=== PATIENT | female | born 1985 | race Caucasian/White ===

== ENCOUNTER 2021-06-28 08:44 | Outpatient (CLI) | payer OTHER | END 2021-06-28 11:03 | disposition home or self-care (01) | LOC: NST 08:44 | PROVIDERS: ATTEND Obstetrics & Gynecology | DX: Z34.82 Encounter for supervision of other normal pregnancy, second trimester (principal) ==

== ENCOUNTER 2021-09-17 17:37 | Outpatient (CLI) | payer OTHER ==
[2021-09-17] MEDS ORDERED: LABETALOL HCL100 MG PO (18:16)
[2021-09-17] MEDS ORDERED: ECOTRIN81 MG PO (18:17)
[2021-09-17] MEDS ORDERED: PRENATAL TABLE1 EAC3 PO (18:17)
== END 2021-09-20 09:42 | disposition home or self-care (01) ==
LOC: OBS/DEL 17:37
PROVIDERS: ATTEND Obstetrics & Gynecology
DX: O16.3 Unspecified maternal hypertension, third trimester (principal); O60.03 Preterm labor without delivery, third trimester; Z3A.33 33 weeks gestation of pregnancy

== ENCOUNTER 2021-10-07 16:33 | Inpatient (IN) | payer OTHER ==
[~2021-10-07] VITALS: Ht 157.5 cm; Wt 3.2 kg
[~2021-10-07 16:33] MED LIST: ECOTRIN81 MG PO; LABETALOL HCL100 MG PO; PRENATAL TABLE1 EAC3 PO
[2021-10-07] MEDS ORDERED: LABETALOL HCL100 MG PO (18:14)
[2021-10-07] MEDS ORDERED: PRENATAL CAPLE1 EAC1 PO (18:14)
[2021-10-08] MEDS ORDERED: MOMETASONE FURO17 GM (08:13)
== END 2021-10-11 12:58 | disposition home or self-care (01) | DRG 786 ==
LOC: LDR 16:33 → O/R 10-08 07:49 → OB/GYN 10-08 13:17
PROVIDERS: ADMIT Obstetrics & Gynecology; ATTEND Obstetrics & Gynecology
PROC: 4A1HXCZ Monitoring of Products of Conception, Cardiac Rate, External Approach (ICD-10-PCS; 2021-10-07)
PROC: 10D00Z1 Extraction of Products of Conception, Low, Open Approach (ICD-10-PCS; principal; 2021-10-08 09:00)
DX: O34.211 Maternal care for low transverse scar from previous cesarean delivery (principal); O11.3 Pre-existing hypertension with pre-eclampsia, third trimester; Z37.0 Single live birth; Z3A.37 37 weeks gestation of pregnancy; Z20.822 Contact with and (suspected) exposure to COVID-19

== ENCOUNTER 2021-10-12 16:48 | Outpatient (CLI) | payer OTHER ==
[~2021-10-12 16:48] MED LIST changes: +MOMETASONE FURO17 GM; +PRENATAL CAPLE1 EAC1 PO
[2021-10-13] MEDS ORDERED: LABETALOL HCL200 MG PO (07:39)
== END 2021-10-13 09:55 | disposition home or self-care (01) ==
LOC: OBS/DEL 16:48
PROVIDERS: ATTEND Obstetrics & Gynecology
DX: O15.2 Eclampsia complicating the puerperium (principal)